=== PATIENT | female | born 1945 | race Caucasian/White ===

== ENCOUNTER 2019-03-19 08:53 | Emergency (ER) | payer MEDICARE, MEDICAID ==
[~2019-03-19] VITALS: Ht 165.1 cm; Wt 59.0 kg
[2019-03-19 09:00] VITALS: BP 138/80
--- NOTE | 2019-03-19 09:02 | NUR ---
74 YR OLD FEMALE ARRIVED VIA EMS. PER REPORT PT "WOKE UP THIS AM, WENT TO THE BR X2, HAD BLOOD IN STOOL" DENIES PAIN. PER EMS WAS A RED TINT TO THE WATER.
--- NOTE | 2019-03-19 09:05 | NUR ---
REPORT TO ROMA RODRIGUEZ
[2019-03-19] MEDS ORDERED: METO200T47 PO (09:10)
[2019-03-19] MEDS ORDERED: FOLI400T3 PO (09:11)
[2019-03-19] MEDS ORDERED: LORA-445 PO (09:12)
[2019-03-19] MEDS ORDERED: TIOT18CA INH (09:12)
[2019-03-19] MEDS ORDERED: POLY17PO18 PO (09:14)
[2019-03-19] MEDS ORDERED: ACET-1600 PO (09:14)
[2019-03-19] MEDS ORDERED: OMEP-110 PO (09:15)
[2019-03-19] MEDS ORDERED: QUET50TA PO (09:16)
--- NOTE | 2019-03-19 10:57 | NUR ---
CALLED [employer] TO OBTAIN PATIENT'S ADDRESS FOR A CAB RIDE HOME (GIVING PATIENT A VOUCHER). PATIENT'S [facility] FACILITY IS LOCATED AT [address] [place] [address], [facility].
--- NOTE | 2019-03-19 11:08 | NUR ---
Patient given discharge instructions and they have confirmed that they understand the instructions. Patient ambulatory with steady gait. Taxi voucher given to patient addressed [place] [id number], for a safe ride home. Notified cut file clerk to update this in the patient's chart.
== END 2019-03-19 11:09 | disposition home or self-care (01) ==
LOC: ED 11:06
DX: K64.8 Other hemorrhoids (principal); J44.9 Chronic obstructive pulmonary disease, unspecified; I10 Essential (primary) hypertension; K21.9 Gastro-esophageal reflux disease without esophagitis
CPT/HCPCS: 99283

== ENCOUNTER 2020-04-01 22:53 | Observation (INO) | payer MEDICARE, MEDICAID ==
[~2020-04-01] VITALS: Ht 157.5 cm; Wt 56.8 kg
[~2020-04-01 22:53] MED LIST: ACET-1600 PO; FOLI400T3 PO; LORA-445 PO; METO200T47 PO; OMEP-110 PO; POLY17PO18 PO; QUET50TA PO; TIOT18CA INH
--- NOTE | 2020-04-01 22:53 | NUR ---
INITIAL PT CONTACT. PT BIBA FROM [facility] AND/OR HALFWAY C/O CHEST PAIN. NON RADIATING, MID CHEST PAIN, CHARACTERIZED BURNING. HX OF GERD. UNABLE TO REPRODUCE PAIN, PT REPORTS PAIN IS WORSE WHEN VOMITING. PT SITTING UPRIGHT ON GURNEY, NADN, VSS. CALL LIGHT AND PERSONAL BELONGINGS WITHIN REACH. AWAITING ERP
[2020-04-01] MEDS ORDERED: SODIUM CHLORIDE FLUSH 10ML SYR IVF ONE (23:30)
[2020-04-01 23:32] LABS: BASOPHILS % (AUTO) 0 % (0-1); EOSINOPHILS % (AUTO) 1 % (1-7); LYMPHOCYTES % (AUTO) 11 % (22-44); MD NO; MEAN CORPUSCULAR HGB CONC 34.2 g/dL (32.4-35.8); MEAN PLATELET VOLUME 8.5 fL (7.4-10.4); MONOCYTES % (AUTO) 5 % (2-9); NEUTROPHILS % (AUTO) 84 % (42-75); PLATELET COUNT 155 x10^3/uL (130-400); RED BLOOD COUNT 4.42 x10^6/uL (3.82-5.3); RED CELL DISTRIBUTION WIDTH 13.4 % (9.6-15.2)
[2020-04-01 23:42] LABS: ANION GAP 9 mmol/L (5-15); CALCIUM 8.2 mg/dL (8.5-10.1); CHLORIDE 113 mmol/L (98-107); CREATININE 0.72 mg/dL (0.55-1.02)
[2020-04-01 23:43] LABS: ALANINE AMINOTRANSFERASE 59 U/L (12-78); ALBUMIN 3.7 g/dL (3.4-5.0)
--- NOTE | 2020-04-01 23:45 | NUR ---
STRAIGHT CATH PERFORMED PER ERP ORDER. AREA CLEANSED PER POLICY. PT TOLERATED WELL, URINE SAMPLE WALKED TO LAB BY THIS RN.
[2020-04-01 23:47] LABS: ALKALINE PHOSPHATASE 86 U/L (45-117); BILIRUBIN,TOTAL 0.6 mg/dL (0.2-1.0); TROPONIN I < 0.015 ng/mL (0.000-0.045)
[2020-04-01 23:59] LABS: MICROSCOPIC INDICATED
--- NOTE | 2020-04-02 00:02 | NUR ---
PT TO CT
[2020-04-02] MEDS ORDERED: OMNIPAQUE 350 MG/ML, 100ML BOTTLE ONE (00:15)
--- NOTE | 2020-04-02 00:21 | NUR ---
PT RETURNED FROM CT, SITTING UPRIGHT ON GURREMY, NADSandra, VSS. PT DENIES ANY NEEDS AT THIS TIME. CALL LIGHT AND BELONGINGS WITHIN REACH.
--- NOTE | 2020-04-02 00:22 | NUR ---
ERP AT BEDSIDE
--- NOTE | 2020-04-02 00:56 | NUR ---
PT AMBULATORY WITH STEADY GAIT TO BATHROOM. PT DENIES ANY ADDITIONAL NEEDS AT THIS TIME. CALL LIGHT AND BELONGINGS WITHIN REACH
[2020-04-02] MEDS ORDERED: CEFTRIAXONE PMX 1GM/50ML 50 ML IV ONE (01:30)
--- NOTE | 2020-04-02 01:38 | NUR ---
HOSPITALIST AT BEDSIDE
[2020-04-02] MEDS ORDERED: CEFTRIAXONE PMX 1GM/50ML 50 ML ONE (01:56)
[2020-04-02] MEDS ORDERED: LORazepam 0.5MG TABLET ONE (01:58)
[2020-04-02] MEDS ORDERED: NITROGLYCERIN 0.4 MG BOTTLE (25 TABS) SL PRN (02:00)
[2020-04-02] MEDS ORDERED: hydrALAzine 20 MG/ML, 1ML IVPush PRN (02:00)
[2020-04-02] MEDS ORDERED: ONDANSETRON ODT 4 MG PO PRN (02:00)
[2020-04-02] MEDS ORDERED: PROMETHAZINE 25 MG/ML, 1ML IM PRN (02:00)
[2020-04-02] MEDS ORDERED: morphine SULFATE 10 MG/ML, 1ML IVPush PRN (02:00)
[2020-04-02] MEDS: SODIUM CHLORIDE 0.9% 1,000 ML IV SCH ×2 (02:00→12:00)
[2020-04-02] MEDS ORDERED: POLYETHYLENE GLYCOL 17 GM PACKET PO PRN (02:00)
[2020-04-02] MEDS ORDERED: LORazepam 0.5MG TABLET PO PRN ×2 (02:00)
[2020-04-02] MEDS ORDERED: ONDANSETRON 2MG/ML, 2ML IVPush PRN (02:00)
[2020-04-02] MEDS ORDERED: OXYcodone IR 5MG TABLET PO PRN (02:00)
[2020-04-02] MEDS: ENOXAPARIN 40 MG/0.4 ML SQ SCH (02:00)
[2020-04-02] MEDS ORDERED: BISACODYL 10 MG SUPP PR PRN (02:00)
--- NOTE | 2020-04-02 03:00 | NUR ---
PT SUPINE ON GURNEY, RESTING COMFORTABLY WITH EYES CLOSED. NADN, VSS. PT DENIES ANY NEEDS AT THIS TIME. CALL LIGHT IN REACH
--- NOTE | 2020-04-02 04:12 | NUR ---
Note lalo in EDM - 04/02/20 at 0413 by JOHNSON PT SUPINE ON GURNEY, RESTING COMFORTABLY WITH EYES CLOSED. DESIRE HATHAWAY. PT DENIES ANY NEEDS AT THIS TIME. CALL LIGHT IN REACH
--- NOTE | 2020-04-02 04:13 | NUR ---
PT MOVED FROM ED GURNEY TO HOSPITAL BED, TOLERATED WELL. UP TO BATHROOM WITH STEADY GAIT. NO ADDITIONAL NEEDS AT THIS TIME. CALL LIGHT AND BELONGINGS WITHIN REACH
--- NOTE | 2020-04-02 04:30 | NUR ---
DAUGHTER ANURAG BARNETT: [phone]. CALL WITH ANY UPDATES.
--- NOTE | 2020-04-02 04:59 | NUR ---
PT SUPINE ON HOSPITAL BED, RESTING COMFORTABLY WITH EYES CLOSED. NADN, VSS. PT DENIES ANY NEEDS AT THIS TIME. CALL LIGHT IN REACH
[2020-04-02 05:49] LABS: TROPONIN I < 0.015 ng/mL (0.000-0.045)
--- NOTE | 2020-04-02 06:02 | NUR ---
PT SUPINE ON HOSPITAL BED, RESTING COMFORTABLY WITH EYES CLOSED. NADN, VSS. PT DENIES ANY NEEDS AT THIS TIME. CALL LIGHT IN REACH
[2020-04-02] MEDS ORDERED: ASPIRIN 325 MG TABLET EC ONE (06:14)
[2020-04-02] MEDS: ASPIRIN 325 MG TABLET EC PO SCH (06:16)
--- NOTE | 2020-04-02 06:20 | NUR ---
PT AMBULATORY WITH STEADY GAIT TO BATHROOM
--- NOTE | 2020-04-02 07:04 | NUR ---
BEDSIDE REPORT TO LEILA RODRIGUEZ
--- NOTE | 2020-04-02 07:56 | NUR ---
NUCLEAR MEDICINE BEDISDE TO PREPARE PT FOR STRESS TEST. PT RESTING ON HOSPITAL BED, DENIES CP OR SOB AT THIS TIME.
[2020-04-02] MEDS ORDERED: REGADENOSON 0.4 MG/5 ML SYRINGE ONE (08:04)
--- NOTE | 2020-04-02 08:21 | NUR ---
REPORT MADE TO JENNIFER LOONEY
--- NOTE | 2020-04-02 08:22 | NUR ---
AM MEDS REQUESED TO BE HELD BY MAYRA PARRISH DUE TO STRESS TEST THIS AM
[2020-04-02 08:47] VITALS: BP 127/83
[2020-04-02 08:48] LABS: TROPONIN I < 0.015 ng/mL (0.000-0.045)
[2020-04-02] MEDS ORDERED: ACETAMINOPHEN 500 MG TABLET PO SCH (09:00)
[2020-04-02] MEDS: MULTIVITS,STRESS FORMULA 1 TABLET PO SCH (09:27)
[2020-04-02] MEDS: ACETAMINOPHEN 325 MG TABLET PO PRN ×2 (09:27→20:08)
[2020-04-02] MEDS: OMEPRAZOLE 20 MG CAPSULE.DR PO SCH (09:27)
[2020-04-02] MEDS: TIOTROPIUM BROMIDE 18 MCG/INH INH SCH (10:20)
[2020-04-02 13:09] VITALS: BP 135/85
[2020-04-02 13:14] LABS: ANION GAP 9 mmol/L (5-15); CALCIUM 8.5 mg/dL (8.5-10.1); CHLORIDE 113 mmol/L (98-107); CREATININE 1.02 mg/dL (0.55-1.02)
[2020-04-02 13:17] LABS: BASOPHILS % (AUTO) 0 % (0-1); EOSINOPHILS % (AUTO) 0 % (1-7); LYMPHOCYTES % (AUTO) 16 % (22-44); MEAN CORPUSCULAR HEMOGLOBIN 33.1 pg (27.0-34.8); MEAN CORPUSCULAR HGB CONC 33.7 g/dL (32.4-35.8); MEAN PLATELET VOLUME 8.6 fL (7.4-10.4); MONOCYTES % (AUTO) 5 % (2-9); NEUTROPHILS % (AUTO) 79 % (42-75); PLATELET COUNT 136 x10^3/uL (130-400); RED BLOOD COUNT 4.61 x10^6/uL (3.82-5.3); RED CELL DISTRIBUTION WIDTH 13.9 % (9.6-15.2)
[2020-04-02] MEDS: SENNA/DOCUSATE TABLET PO SCH (13:30)
[2020-04-02] MEDS: POLYETHYLENE GLYCOL 17 GM PACKET PO SCH (13:30)
[2020-04-02 13:40] LABS: MD NO
[2020-04-02 20:20] VITALS: BP 138/80
[2020-04-02] MEDS ORDERED: METOPROLOL SUCCINATE 100 MG TAB.ER.24H PO SCH (21:00)
[2020-04-02] MEDS ORDERED: QUETIAPINE 25MG TABLET PO SCH (21:00)
[2020-04-02] MEDS ORDERED: CEFTRIAXONE PMX 1GM/50ML 50 ML IV SCH (23:00)
[2020-04-03 02:23] VITALS: BP 95/59
[2020-04-03 05:50] LABS: BASOPHILS % (AUTO) 2 % (0-1); EOSINOPHILS % (AUTO) 2 % (1-7); LYMPHOCYTES % (AUTO) 39 % (22-44); MEAN CORPUSCULAR HEMOGLOBIN 33.2 pg (27.0-34.8); MEAN CORPUSCULAR HGB CONC 33.7 g/dL (32.4-35.8); MEAN PLATELET VOLUME 9.1 fL (7.4-10.4); MONOCYTES % (AUTO) 12 % (2-9); NEUTROPHILS % (AUTO) 46 % (42-75); PLATELET COUNT 122 x10^3/uL (130-400); RED BLOOD COUNT 4.16 x10^6/uL (3.82-5.3); RED CELL DISTRIBUTION WIDTH 13.8 % (9.6-15.2)
[2020-04-03] MEDS: ASPIRIN 325 MG TABLET EC PO SCH (05:57)
[2020-04-03 05:58] LABS: ALBUMIN 3.2 g/dL (3.4-5.0); ANION GAP 6 mmol/L (5-15); CALCIUM 8.5 mg/dL (8.5-10.1); CHLORIDE 112 mmol/L (98-107)
[2020-04-03 06:00] LABS: MD NO
[2020-04-03] MEDS: ENOXAPARIN 40 MG/0.4 ML SQ SCH (06:00)
[2020-04-03 06:07] LABS: ALANINE AMINOTRANSFERASE 172 U/L (12-78); ALKALINE PHOSPHATASE 91 U/L (45-117); BILIRUBIN,TOTAL 0.4 mg/dL (0.2-1.0); CHOL/HDL RATIO 4.1; CHOLESTEROL, TOTAL 159 mg/dL (140-239); CREATININE 0.83 mg/dL (0.55-1.02); HDL CHOL % 25 % (28-40); HDL CHOLESTEROL (DIRECT) 39 mg/dL (40-60); LDL CHOLESTEROL,CALCULATED 90 mg/dL (54-169); LDL/HDL RATIO 2.3 (0.5-3.0); TOTAL PROTEIN 6.2 g/dL (6.4-8.2); TRIGLYCERIDES 149 mg/dL (50-200); VLDL CHOLESTEROL 30 mg/dL (0-25)
[2020-04-03 08:30] VITALS: BP 120/79
[2020-04-03] MEDS: OMEPRAZOLE 20 MG CAPSULE.DR PO SCH (08:52)
[2020-04-03] MEDS: MULTIVITS,STRESS FORMULA 1 TABLET PO SCH (08:52)
[2020-04-03] MEDS: POLYETHYLENE GLYCOL 17 GM PACKET PO SCH (08:53)
[2020-04-03] MEDS: SENNA/DOCUSATE TABLET PO SCH (08:53)
[2020-04-03] MEDS: TIOTROPIUM BROMIDE 18 MCG/INH INH SCH (09:00)
[2020-04-03] MEDS ORDERED: SULF1TAB24 PO (12:37)
[2020-04-03 13:02] VITALS: BP 135/85
[2020-04-03] MEDS ORDERED: FLU VACC QS2020-21(6MOS UP)/PF 60MCG/0.5 ML SYR IM-VACC ONE (13:30)
== END 2020-04-03 15:19 | disposition home or self-care (01) ==
LOC: ED 23:45 → EDIP 04-02 01:25 → INTOOBSV 04-02 01:25 → 5SO 04-02 08:43
PROVIDERS: ADMIT Internal Medicine; ATTEND Hospitalist
DX: N39.0 Urinary tract infection, site not specified (principal); R07.89 Other chest pain; J44.9 Chronic obstructive pulmonary disease, unspecified; K21.9 Gastro-esophageal reflux disease without esophagitis; I10 Essential (primary) hypertension; K64.9 Unspecified hemorrhoids; K83.8 Other specified diseases of biliary tract; F03.90 Unspecified dementia, unspecified severity, without behavioral disturbance, psychotic disturbance, mood disturbance, and anxiety; F41.1 Generalized anxiety disorder; F17.210 Nicotine dependence, cigarettes, uncomplicated; Z79.899 Other long term (current) drug therapy; Z79.4 Long term (current) use of insulin; Z23 Encounter for immunization
CPT/HCPCS: 36415; 71045; 74177; 74181; 78452; 80048; 80053; 80061; 81001; 83036; 83735; 84443; 84484; 85025; 87077; 87086; 87186; 90686; 93005; 93017; 93306; 94640; 96361; 96365; 96366; 96372; 99285; A9502; G0008; G0378; J0696; J1650; J2785; J7030; Q9967